=== PATIENT | female | born 2000 | race Caucasian/White ===

== ENCOUNTER 2020-11-23 13:46 | Emergency (ER) | payer BC, SELFPAY ==
--- NOTE | ~2020-11-23 | CT_ITS ---
EXAMINATION: CT HEAD WITHOUT CONTRAST CLINICAL INFORMATION: Seizure status-post head injury. COMPARISON: None TECHNIQUE: Contiguous axial imaging was performed from the skull base to vertex without intravenous administration of contrast. Multiplanar reformatted images are submitted. This CT examination was performed using dose optimization techniques as appropriate, variously including the following: *Automated exposure control *Adjustment of mA and/or kV according to patient size (this includes techniques or standardized protocols for targeted exams where dose is matched to indication/reason for exam; i.e. extremities or head) *Use of iterative reconstruction technique DLP: 618 mGy-cm FINDINGS: There is no evidence of acute intracranial hemorrhage or territorial infarction. No abnormal mass effect or midline shift is seen. Gerardo to white matter differentiation is well preserved. No extra-axial fluid collections are identified. The ventricles are normal in size. There is no abnormal attenuation within the brain parenchyma. The osseous structures and soft tissues are normal. The mastoid air cells are clear. There is bilateral posterior ethmoid sinusitis. There is an incompletely characterized left maxillary mucosal polyp. CT/CT head/brain wo con IMPRESSION: 1. No acute intracranial pathology. 2. There is paranasal sinusitis.
[2020-11-23 14:04] VITALS: BP 115/73; BP 136/77; PULSE 128; PULSE 140; RESP 14; TEMP 36.7; O2SAT 96; O2SAT 99; BMI 29.2
[2020-11-23 14:12] LABS: Glucose, Whole Blood 87 mg/dL (60-115)
--- NOTE | 2020-11-23 15:21 | ED_ITS ---
HPI - Seizure General Chief Complaint: Seizure Stated Complaint: POSSIBLE SEIZURE Time Seen by Provider: 11/23/20 14:57 Source: patient, family and EMS Mode of arrival: ambulatory Limitations: no limitations History of Present Illness HPI Narrative: Patient is a 19-year-old female with a remote past medical history of seizures, has not been on seizure medication in almost 10 years comes in via EMS after having a suspected seizure. Patient was last seen well at 01:00 o'clock and then was found on the floor 20 minutes later. 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 Patient was postictal for EMS. Patient states she had her 1st seizure at 5-day-old and was on medication until she was 10 years old where she was weaned off of the meds. She states she has been seizure free since then. Patient states her legs feel little bit heavy and she feels bit foggy . MD complaint: seizure Seizure History: Yes Place: Work Related Data Previous Rx's Medication Instructions Recorded levetiracetam [Keppra] 500 mg PO Q12H #28 tab 11/23/20 Allergies Allergy/AdvReac Type Severity Reaction Status Date / Time No Known Allergies Allergy Verified 11/23/20 14:01 Review of Systems Neurologic: Denies Abnormal speech present [facility] Past Medical History Medical History (Updated 11/23/20 @ 18:47 by Shavon Willams PA-C) Seizures Social History Social History Smoking Status: Never smoker Smoked in Last 30 Days: No Use of substances other than those prescribed or required for medical reasons: No Advance Directives: No Advance Directives Information Provided: No Physical Exam Vital Signs: Vital Signs: Last Vital Signs Temp 98.1 F 11/23/20 14:04 Pulse 105 H 11/23/20 17:34 Resp 18 11/23/20 17:34 BP 117/75 11/23/20 17:34 Pulse Ox 98 11/23/20 17:34 Body Mass Index 29.2 Const: General: cooperative, healthy appearing, comfortable, no acute distress and well developed Orientation/consciousness: patient oriented x3 Limitations: no limitations HENMT: Head: Yes contusion (left forehead, 3cm circumferential) Eyes: General: appearance normal, both eyes and all related structures Pupils: Pupils normal by confrontation and Irregular pupils (Left pupil slightly larger than right, this is patient's baseline per mom) EOM: EOMs intact bilaterally Neck: Neck: Yes normal visual inspection, Yes full ROM and Yes supple Resp: Effort & Inspection: normal respiratory effort and able to speak in complete sentences Auscultation: clear to auscultation bilaterally, no crackles, no rales, no rhonchi and no wheezes Cardio: Rate: regular rate Rhythm: regular rhythm Heart sounds: normal S1 and S2 GI: Inspection: Yes normal to inspection Palpation (GI): Soft to palpation and nontender Skin: General skin exam: no rashes or lesions noted Neuro: General: patient oriented x3 Cranial nerves: Yes CN's II-XII intact bilaterally Cognition (Neuro): normal cognition Speech: No Abnormal speech present Motor exam (neuro): 5/5 motor strength present throughout Extrem: General: Yes normal to inspection Course Course Course Narrative: 19-year-old female with a past medical history of remote seizures, stop taking anti seizure medications 9 years ago brought in by EMS after having an unwitnessed apparent seizure. Patient was post-ictal upon my exam, she also bit her tongue and hit her head. Will get labs and head CT. ALL labs WNL, head CT WNL, will give loading dose of Keppra, left message for on-call neurology for discharge dosing. MDM - Seizure Lab Data Attestation: I reviewed the patient's lab results. Result diagrams: 11/23/20 15:57 11/23/20 15:57 Labs: Lab Results 11/23/20 11/23/20 11/23/20 Range/Units 14:07 15:57 15:57 WBC 10.5 (4.8-10.8) X10*3/uL RBC 4.30 (4.20-5.50) X10*6/uL Hgb 14.1 (12.0-16.0) g/dl Hct 40.7 (37-47) % MCV 94.7 (80-98) fL MCH 32.8 (27.0-33.0) pg MCHC 34.6 (31.0-35.0) g/dl RDW 11.7 (11.0-16.0) % Plt Count 306 (160-400) X10*3/uL MPV 10.8 (9.4-12.3) fL Immature Gran % (Auto) 0.5 H (0.0-0.4) % Neut % (Auto) 82.0 H (45-73) % Lymph % (Auto) 12.3 L (20-40) % Jackson % (Auto) 4.9 (2-11) % Eos % (Auto) 0.1 (0-4) % Baso % (Auto) 0.2 (0-2) % Lymph # (Auto) 1.3 (1.2-4.9) X10*3/uL Jackson # (Auto) 0.5 (0.1-1.2) X10*3/uL Eos # (Auto) 0.0 (0.0-0.4) X10*3/uL Baso # (Auto) 0.0 (0.0-0.2) X10*3/uL Abs Immat Gran (auto) 0.05 H (0.00-0.03) X10*3/uL Absolute Neuts (auto) 8.6 H (2.0-8.3) X10*3/uL Absolute Nucleated RBC 0.000 (0.0-0.012) X10*3/uL Nucleated RBC % (auto) 0.0 (0.0-0.2) /100WBC Sodium 140 (135-145) mmol/L Potassium 4.3 (3.3-5.1) mmol/L Chloride 108 (96-108) mmol/L Carbon Dioxide 24 (22-29) mmol/L Anion Gap 12 (12-20) BUN 6 L (9-16) mg/dL Creatinine 0.66 (0.5-1.4) mg/dL Estim Creat Clear Calc 130.6 Estimated GFR > 60 POC Glucose 87 (60-115) mg/dL Random Glucose 93 (60-115) mg/dL Calcium 9.3 (8.4-10.2) mg/dL Urine Color Urine Appearance Urine pH (5.0-8.0) Ur Specific [place] (1.005-1.025) Urine Protein (NEG-TRACE) MG/DL Urine Glucose (UA) (NEG) MG/DL Urine Ketones (NEG) MG/DL Urine Blood (NEG) Urine Nitrite (NEG) Ur Leukocyte Esterase (NEG) Urine RBC (0) /HPF Urine WBC (0-4) /HPF Ur Squamous Epith Cells /LPF Urine Bacteria /LPF Urine Test (NEGATIVE) 11/23/20 11/23/20 11/23/20 Range/Units 16:04 17:05 17:05 WBC (4.8-10.8) X10*3/uL RBC (4.20-5.50) X10*6/uL Hgb (12.0-16.0) g/dl Hct (37-47) % MCV (80-98) fL MCH (27.0-33.0) pg MCHC (31.0-35.0) g/dl RDW (11.0-16.0) % Plt Count (160-400) X10*3/uL MPV (9.4-12.3) fL Immature Gran % (Auto) (0.0-0.4) % Neut % (Auto) (45-73) % Lymph % (Auto) (20-40) % Jackson % (Auto) (2-11) % Eos % (Auto) (0-4) % Baso % (Auto) (0-2) % Lymph # (Auto) (1.2-4.9) X10*3/uL Jackson # (Auto) (0.1-1.2) X10*3/uL Eos # (Auto) (0.0-0.4) X10*3/uL Baso # (Auto) (0.0-0.2) X10*3/uL Abs Immat Gran (auto) (0.00-0.03) X10*3/uL Absolute Neuts (auto) (2.0-8.3) X10*3/uL Absolute Nucleated RBC (0.0-0.012) X10*3/uL Nucleated RBC % (auto) (0.0-0.2) /100WBC Sodium (135-145) mmol/L Potassium (3.3-5.1) mmol/L Chloride (96-108) mmol/L Carbon Dioxide (22-29) mmol/L Anion Gap (12-20) BUN (9-16) mg/dL Creatinine (0.5-1.4) mg/dL Estim Creat Clear Calc Estimated GFR POC Glucose 80 (60-115) mg/dL Random Glucose (60-115) mg/dL Calcium (8.4-10.2) mg/dL Urine Color YELLOW Urine Appearance CLEAR Urine pH 7.0 (5.0-8.0) Ur Specific [place] 1.025 (1.005-1.025) Urine Protein NEG (NEG-TRACE) MG/DL Urine Glucose (UA) NEG (NEG) MG/DL Urine Ketones NEG (NEG) MG/DL Urine Blood 1+ H (NEG) Urine Nitrite NEG (NEG) Ur Leukocyte Esterase NEG (NEG) Urine RBC 0 (0) /HPF Urine WBC 0 (0-4) /HPF Ur Squamous Epith Cells TRACE /LPF Urine Bacteria TRACE /LPF Urine Test NEGATIVE (NEGATIVE) Imaging Data CT scan - head: Attestation: I personally reviewed and interpreted this imaging study as follows: My impression: Nothing acute Radiologist's impression: [address] [id number] Scan ReportSigned Patient: Dayna InfanteMR#: [id number]: [id number]:[id number]/Sex: 19 / FADM Date: 11/23/20Loc: EDAttending Dr: Ordering Physician: Shavon Willams PA-C Date of Service: 11/23/20 Procedure(s): CT head/brain wo con Accession Number(s): [id number] cc: Shavon Willams PA-C~ EXAMINATION: CT HEAD WITHOUT CONTRAST CLINICAL INFORMATION: Seizure status-post head injury. COMPARISON: None TECHNIQUE: Contiguous axial imaging was performed from the skull base to vertex without intravenous administration of contrast. Multiplanar reformatted images are submitted. This CT examination was performed using dose optimization techniques as appropriate, variously including the following: *Automated exposure control *Adjustment of mA and/or kV according to patient size (this includes techniques or standardized protocols for targeted exams where dose is matched to indication/reason for exam; i.e. extremities or head) *Use of iterative reconstruction technique DLP: 618 mGy-cm FINDINGS: There is no evidence of acute intracranial hemorrhage or territorial infarction. No abnormal mass effect or midline shift is seen. Gerardo to white matter differentiation is well preserved. No extra-axial fluid collections are identified. The ventricles are normal in size. There is no abnormal attenuation within the brain parenchyma. The osseous structures and soft tissues are normal. The mastoid air cells are clear. There is bilateral posterior ethmoid sinusitis. There is an incompletely characterized left maxillary mucosal polyp. CT/CT head/brain wo con IMPRESSION: 1. No acute intracranial pathology. 2. There is paranasal sinusitis. Dictated By:ERIS HAMILTON MDSigned By:<Electronically signed by ERIS HAMILTON MD in OV>11/23/20 1838 DD/ 1520TD/TT: Used Car Salesperson: RHEA Discharge Plan Discharge Clinical Impression: New onset seizure Patient Disposition: Home, Self-Care Instructions: New-Onset Seizure in Adults (ED) Additional Instructions: Please be advised, absolutely no driving until you are cleared by a neurologist to do so. Prescriptions: New levetiracetam [Keppra] 500 mg tablet 500 mg PO Q12H Qty: 28 RF: 0 Referrals: Elizabeth Daniel MD [Physician] - 2 days
[2020-11-23 16:01] LABS: MANUAL DIFF FLAG NO
[2020-11-23 16:06] LABS: Basophils Percent Auto 0.2 % (0-2); Eosinophils Percent Auto 0.1 % (0-4); Hematocrit 40.7 % (37-47); Hemoglobin 14.1 g/dl (12.0-16.0); Imm Gran Abs Auto 0.05 X10*3/uL (0.00-0.03); Imm Gran Pct Auto 0.5 % (0.0-0.4); Lymphocytes Absolute Auto 1.3 X10*3/uL (1.2-4.9); Lymphocytes Percent Auto 12.3 % (20-40); Mean Corpuscular HGB Conc 34.6 g/dl (31.0-35.0); Mean Corpuscular Hemoglobin 32.8 pg (27.0-33.0); Mean Corpuscular Volume 94.7 fL (80-98); Mean Platelet Volume 10.8 fL (9.4-12.3); Monocytes Absolute Auto 0.5 X10*3/uL (0.1-1.2); Monocytes Percent Auto 4.9 % (2-11); Neutrophils Absolute Auto 8.6 X10*3/uL (2.0-8.3); Platelet Count 306 X10*3/uL (160-400); Red Cell Distribution Width 11.7 % (11.0-16.0); White Blood Count 10.5 X10*3/uL (4.8-10.8)
[2020-11-23 16:09] LABS: Glucose, Whole Blood 80 mg/dL (60-115)
[2020-11-23 16:28] LABS: Anion Gap 12 (12-20); Blood Urea Nitrogen 6 mg/dL (9-16); Calcium 9.3 mg/dL (8.4-10.2); Carbon Dioxide 24 mmol/L (22-29); Chloride 108 mmol/L (96-108); Creatinine Clr Calc Pharmacy 130.6; Estimated Glomerular Filt Rate > 60; Glucose Random 93 mg/dL (60-115); Potassium 4.3 mmol/L (3.3-5.1); Sodium 140 mmol/L (135-145)
[2020-11-23] MEDS: Ibuprofen 600 MG TABLET PO (17:03)
--- NOTE | 2020-11-23 17:06 | PC.NURSE ---
update to mom and dad in [place]. pt is alert, ambulatory. axox3.
[2020-11-23 17:34] VITALS: BP 117/75; PULSE 105; RESP 18; O2SAT 98
[2020-11-23 17:34] LABS: Glucose Urine UA NEG (NEG); Leukocyte Esterase Urine NEG (NEG); Nitrite Urine NEG (NEG); Specific Gravity - Urine 1.025 (1.005-1.025); Urine Blood 1+ (NEG); Urine Ketones NEG (NEG); Urine Protein NEG (NEG-TRACE)
--- NOTE | 2020-11-23 17:35 | PC.NURSE ---
headache improviing. c/o slight nausea but declining nausea meds. awaits ct
[2020-11-23 17:46] LABS: UPreg QC Valid YES; Urine Pregnancy NEGATIVE (NEGATIVE)
[2020-11-23 17:47] LABS: Appearance Urine CLEAR; Color Urine YELLOW
[2020-11-23 17:54] LABS: Bacteria Urine TRACE /LPF; RBC Urine 0 /HPF (0); Squamous Epithelial Cell Urine TRACE /LPF; WBC Urine 0 /HPF (0-4)
[2020-11-23] MEDS: levETIRAcetam 1,000 MG TABLET 1000 MG PO (19:30)
--- NOTE | 2020-11-23 19:30 | PC.NURSE ---
pt medicated as per emar
--- NOTE | 2020-11-24 08:46 | ECG_ITS ---
Test Reason : SEIZURE Blood Pressure : / mmHG Vent. Rate : 132 BPM Atrial Rate : 132 BPM P-R Int : 130 ms QRS Dur : 084 ms QT Int : 310 ms P-R-T Axes : 051 056 031 degrees QTc Int : 459 ms Sinus tachycardia Otherwise normal ECG No previous ECGs available Referred By: Roly Fitzgerald Electronically Signed By:Karl Belle
== END 2020-11-23 19:56 | disposition home or self-care (01) ==
PROVIDERS: Physician Assistant; Emergency Provider Emergency Medicine Emergency Medical Services; PCP Nurse Practitioner Adult Health
DX: R56.9 Unspecified convulsions (principal); Z79.899 Other long term (current) drug therapy
CPT/HCPCS: 36415; 70450; 80048; 81001; 81025; 82947; 85025; 93005; 99284